=== PATIENT | female | born 1990 | race Caucasian/White ===

== ENCOUNTER 2025-10-25 07:48 | Outpatient (AMB) | payer OTHER, SELFPAY ==
--- OUTSIDE RECORDS SUMMARY | 2025-10-25 07:53 | XMS_ITS | Clinical Summary ---
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 20 tablet 10/18/20 25 Discontinu ed(Therapy completed) Active Problems Problem Noted Date Diagnosed Date Prediabetes 04/11/2025 Resolved Problems Problem Noted Date Diagnosed Date Resolved Date Patient denies medical problems 04/06/2025 04/11/2025 Encounters Date Type Department Care Team Description 10/18/2025 8:00 AM EST Office Visit Adult Medicine [address] [phone] Bernadette Bell PA Elevated blood pressure reading without diagnosis of hypertension (Primary Dx); Nonintractable headache, unspecified chronicity pattern, unspecified headache type 10/17/2025 Telephone Adult Medicine [address] [phone] Oralia Butler MD from Last 3 Months Immunizations Immunization Administration Dates Next Due Tdap Tetanus diptheria acell ular pertussis (Boostrix; Adacel) 7yo and older 05/15/2024 Surgical History Surgery Date Site/Laterality Comments SECTION, LOW TRANSVERSE 12/31/2019 - 01/28/202009/2013 ANKLE FRACTURE SURGERY 11/30/2021 - 12/30/2021 Left ORIF Family History Medical History Relation Name Comments No Known Problems Brother No Known Problems Father Hypertension Mother No Known Problems Sister 1 No Known Problems Sister 2 No Known Problems Sister 3 Relation Name Status Comments Brother Alive Father Alive Maternal Grandfather Maternal Grandmother Mother Alive Paternal Grandfather Paternal Grandmother Alive Sister 1 Alive Sister 2 Alive Sister 3 Alive Social History Tobacco Use Types Packs/Day Years Used Date Smoking Tobacco: Never Passive Smoke Exposure: Never Smokeless Tobacco: Never Tobacco Cessation:Counseling Given: Not Answered Alcohol Use Standard Drinks/Week Comments Not Currently 0 (1 standard drink = 0.6 oz pur e alcohol) Housing Instability Answer Date Recorde d Are you worried that in the next 2 months you may not have stable housing? No 04/06/2025 Food Access & Nutrition Answer Date Rec orded Do you have access to a vari ety of food including fruits and vegetables? Yes 04/06/2025 Access to Healthcare Answer Date Record ed Within the last 3 months, ho w many times did you visit the emergency department for your medical care? 0 04/06/2025 Health Literacy Answer Date Recorded How often do you need to hav e someone help you when you read instructions, pamphlets, or other written material from your doctor or pharmacy? Never 04/06/2025 Caregiver: How often do you need to have someone help you when you read instructions, pamphlets, or other written material from your doctor or pharmacy? Not on file 04/06/2025 Financial Risk Answer Date Recorded How hard is it for you to pa y for the very basics like food, housing, medical care, and air conditioning / heating? Not very hard 04/06/2025 Transportation Answer Date Recorded Has the lack of transportati on kept you from meetings, work, or from getting things needed for daily living? No Has the lack of transportati on kept you from medical appointments or from getting medications? No 04/06/2025 Social Isolation Answer Date Recorded How often do you feel lonely or isolated from th ose around you? Never 04/06/2025 Food Risk Answer Date Recorded Within the past 12 months we worried whether our food would run out before we got money to buy more. Never true 04/06/2025 Within the past 12 months th e food we bought just didn't last and we didn't have money to get more. Never true 04/06/2025 Dependent Care Answer Date Recorded Do you need help finding or paying for care for your loved ones. For example, child caregiver or elderly care for an older adult? No 04/06/2025 Education Answer Date Recorded Do you think completing more education or training, like finishing a GED, going to college, or learning a trade, would be helpful for you? No 04/06/2025 Employment and Income Answer Date Recor ded During the last four weeks, have you been actively looking for work? No 04/06/2025 Living Situation Answer Date Recorded What is your living situation? Unrecognized valu e 04/06/2025 Comments Unknown Sex and Gender Information Value Date Recorded Sex Assigned at Not on file Legal Sex Female 12:25 PM EST Gender Identity Not on file Sexual Orientation Not on file Obstetrics History Last Filed Vital Signs Vital Sign Reading Time Taken Comments Blood Pressure 128/84 10/18/2025 7:57 AM EST machine 122/76 Pulse 94 10/18/2025 7:57 AM EST Temperature 36.1 C (97 F) 10/18/2025 7:57 AM EST Respiratory Rate 12 10/18/2025 7:57 AM EST Oxygen Saturation 99% 06/20/2025 2:5 1 PM EDT Inhaled Oxygen Concentration - - Weight 97.8 kg (215 lb 8 oz) 10/18/2025 7:57 AM EST Height 152.4 cm (5') 10/18/2025 7:57 AM EST Body Mass Index 42.09 10/18/2025 7:57 AM EST Plan of Treatment Health Maintenance Due Date Last Done Comments Hepatitis B Vaccines (1 of 3 - 19+ 3-dose series) 2008 HPV Vaccines (1 - 3-dose SCD M series) 2016 HIV Screening 10/28/2022 Hepatitis C Screening 10/28/2022 Influenza Vaccine (#1) 2025 Cervical Cancer Screening: P ap Smear 04/06/2026 Postponed from 03/24 (Supply/Drug Shortage) Social Influencers of Health Screening 04/06/2026 04/06/2025 Cholesterol Screening (Lipid Panel) 04/06/2030 04/06/2025 DTaP,Tdap,and Td Vaccines (2 - Td or Tdap) 05/15/2034 05/15/2024 RSV Immunization Adult Patie nts (1 - 1-dose 75+ series) 2064 Depression Screening Completed 10/17/2025 COVID-19 Vaccine Discontinued HIB Vaccines Aged Out No longer eligi ble based on patient's age to complete this topic Hepatitis A Vaccines Aged Out No long er eligible based on patient's age to complete this topic IPV Vaccines Aged Out No longer eligi ble based on patient's age to complete this topic MMR Vaccines Aged Out No longer eligi ble based on patient's age to complete this topic Meningococcal ACWY Vaccine Aged Out N o longer eligible based on patient's age to complete this topic Meningococcal B Vaccine Aged Out No l onger eligible based on patient's age to complete this topic Pneumococcal Vaccine: Pediat rics (0 to 5 Years) and At-Risk Patients (6 to 49 Years) Aged Out No longer eligi ble based on patient's age to complete this topic RSV Immunization Patients Un ashleigh 20 months Aged Out No longer eligible b ased on patient's age to complete this topic Varicella Vaccines Aged Out No longer eligible based on patient's age to complete this topic Procedures Procedure Name Priority Date/Time Associated Diagnosis Comments LIPID PANEL WITH REFLEX TO DIRECT LDL Routine 04/06/2025 4:24 PM EDT Routine physical examination from Last 3 Months or Most Recently Relevant to Health Maintenance Results * (ABNORMAL) Lipid panel with reflex to direct LDL (04/06/2025 4:24 PM EDT) Cholesterol 195 0 - 200 mg/dL LAB CHEMISTRY METHOD 04/06/2025 7:20 PM EDT [facility] Triglycerides 162(H) 0 - 150 mg/dL LAB CHEMISTRY METHOD 04/06/2025 7:20 PM EDT [facility] HDL 68 >=40 mg/dL LAB CHEMISTRY METHOD 04/06/2025 7:20 PM EDT [facility] LDL Calculated 95 0 - 100 mg/dL LAB CHEMISTRY METHOD 04/06/2025 7:20 PM EDT [facility] VLDL Cholesterol Mehdi 32.4 mg/dL LAB CHEMISTRY METHOD 04/06/2025 7:20 PM EDT [facility] Non HDL Chol. (LDL+VLDL) 127 <145 mg/dL LAB CHEMISTRY METHOD 04/06/2025 7:20 PM EDT [facility] Chol/HDL Ratio 2.9 0.0 - 4.4 LAB CHEMISTRY METHOD 04/06/2025 7:20 PM EDT [facility] Blood Venous blood specimen / Unknown Venipuncture / Unknown 04/06/2025 4:24 PM EDT 04/06/2025 4:24 PM EDT us Bernadette COY LAB BLOOD ORDERABLES Final Res ult [facility] [address] [place] [address], from Last 3 Months or Most Recently Relevant to Health Maintenance Insurance [facility] [employer] [facility] Care Teams Rim Fire Priming Operator Relationship Specialty Start Date End Date Oralia Butler MD [address] [place], [place] PCP - General Internal Medicine 8/22/24
--- NOTE | 2025-10-25 09:07 | MHC.OFFVISWM ---
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: Details: Start time: 9.00am, End time: 9.40am ?I spent 35 minutes speaking with the patient on the phone plus an additional 5 minutes reviewing and updating records for a total of 40 minutes HPI Comments Details: Previous weight loss efforts: Herbalife, self diets and exercise Wakes up: 6am, Sleeps: 9pm Breakfast: skips Lunch: 12pm (rice, chicken) Dinner: 7pm (rice and chicken) Snacks: 4pm (chocolate), 8pm (chocolate, sweets) Exercise: Stationary bike (tracks calories) Beverages: Coffee: (1 cup/d with cream and sugar), Tea: rarely, Soda: regular Coke: daily, Juice: none, ETOH: none PFSH Medical History (Updated 10/25/25 @ 09:09 by Keith Hadley MD) Morbid obesity Delivery with history of Surgical History (Updated 10/19/25 @ 08:47 by Kanchan Morelos CMA) History of ankle surgery Family History (Updated 10/19/25 @ 08:47 by Kanchan Morelos CMA) Mother No problems noted. Father No problems noted. Social History (Updated 10/19/25 @ 08:47 by Kanchan Morelos CMA) Alcohol intake: never Patient Tobacco Use Status: Never used Tobacco Telehealth Telehealth Telehealth Platform: Telephone Location of provider rendering services: practice address Location of patient: address on file Patient Identification confirmed using: Name, : Yes Telehealth method: voice only Patient verbally consented to treatment: Yes Patient verbally consented to billing insurance company: Yes Patient informed of any privacy concerns related to visit: Yes Minutes spent on Phone/Video with Pt.: 40 Assessment & Plan Assessment & Plan (1) Morbid obesity: Code(s): E66.01 - Morbid (severe) obesity due to excess calories Category: Medical Plan: 1.? Plan for lap sleeve gastrectomy. If diaphragmatic or ventral hernias are present at time of surgery, these will be repaired laparoscopically as well. I emphasized the importance of close follow-up, adherence to instructions and good communication. The surgery does not replace the need to change your lifestlyle which is the cause of the obesity problem. The surgery provides the motivation to try again to change your lifestyle, it reduces the appetite and make the transition to a better lifestyle easier and doubles the amount of weight you would lose compared to doing the lifestyle change without the surgery. You will need to be on a liquid diet with protein shakes for 2 weeks before surgery to maximize weight loss and boost your nutritional status to recover better from surgery and also for the first two weeks after surgery to let the stomach heal before we introduce other foods. After the first 2 weeks we will introduce protein bars and soft foods like scrambled eggs, cottage cheese and yogurt and after the 6th week will introduce meat, fish and cooked vegetables in small amounts. Over time you should be able to eat everything in small amounts. Side effects like nausea, vomiting, heartburn or abdominal pain are not common in the practice unless you are not following in the practice. This operation requires lifetime commitment to following in our practice and communication with me. You will much less weight and experience side effects if you don?t communicate or not following in the practice. Complications are rare and in our practice is about 1/10 of the national average. However, you can develop bleeding that may require transfusion (hasn?t happened for year in the practice), you may from complications (we did not have any deaths in the practice) and infections. Infections are usually a result of breakdown in communication or not understanding or following directions correctly. They are difficult to treat, they can happen during the first 6 weeks, they may require to be in the hospital for weeks or even months, not being able to eat by mouth and you may have drains and surgeries to try and correct the issue. Other risks and complications include possible conversion to an open procedure, leaks, small bowel obstruction, blood clots, cardiac, or pulmonary complications, as halfway complications such as ulcers, insufficient weight loss and vitamin deficiencies. 2. Nutritional counseling. Start with one CELEBRATE REBUILD protein (buy online with the link I gave you) shake (ONE scoop in 8oz low fat unsweetened almond milk) at 7am-9am, 1 protein bar (CELEBRATE protein bars, buy at [facility] [employer] shop, buy online with the link I gave you) at 10am-12pm, another CELEBRATE REBUILD protein shake (ONE scoop in 8oz low fat unsweetened almond milk) at 1pm-3pm, another Celebrate protein bar at 4pm-6pm, dinner at 7pm (8 forks of protein and 8 forks of salad/vegetables). So you do 2 protein shakes, 2 protein bars and one meal per day. Meal to include lean meat (beef, fish, pork, turkey, chicken), or [place] yogurt, or egg whites, or beans with a salad with olive oil and fruits (berries, pears, apples, kiwi). Avoid salt, breads, potatoes, rice, pasta, desserts. 3. Each shake would be drunk slowly, like coffee in a period of 2 hours. 4. Cut each bar in 4 pieces and eat each piece in 30min ?to make each bar last 2 hours. 5. I emphasized the importance of measuring accurately the food portion and measure it when serving the food in plate 6. The meal portions include 8 full-size forks of meat and 8 full-size forks of salad. You always eat the meat portion but you can replace up to 4 forks for salad/vegetables with rice, potatoes or pasta, or a fruit ?if you like. The less you do it the better weight loss will be. 7. One full-size fork is what it can be scooped on the fork without falling aside and not what can be bit with the fork. Use regular forks like those you find in a typical restaurant. 8.? Please buy the body composition scale we discussed and send me weight measurements as soon as possible and then once a week. Always include your diet and exercise plan. 9. Start stationary bike at a resistance level of 4.0 Increase level by 1.0 every 3 min to a max level of 10.0. Stay at this level for 3 min and then return to level 4.0 and repeat same steps until 300 calories are burned. Goal is to burn 2000 calories per week on exercise 10.?It is important of avoiding and for at least 18 months postoperatively and has been discussed at the infosession. 11. Goal is to lose at least 1.5-2lbs per week 12. Goal to lose 10% of your weight before surgery, which is about 21lbs. Ultimate weight goal: 193lbs before surgery 13. Please follow the diet plan exactly without any change. If you don't like something about the plan or you feel hungry you need to communicate with me so I can help you revise the plan. You should not change the plan yourself 14. To be scheduled for EGD to assess the stomach's anatomy. The possibility of biopsies was discussed. Patient needs to avoid use of NSAIDs and aspirin for 1 week prior to EGD. You must be on liquids only the day before your endoscopy. Risks of perforation and bleeding was discussed with the patient. This will be an outpatient procedure with IV sedation. Orders: Orders Insulin Today E66.01 - Morbid (severe) obesity due to excess calories H Pylori Breath Test Today E66.01 - Morbid (severe) obesity due to excess calories Complete Blood Count Auto Diff Today E66.01 - Morbid (severe) obesity due to excess calories Vitamin B12 and Folate Today E66.01 - Morbid (severe) obesity due to excess calories Zinc Today E66.01 - Morbid (severe) obesity due to excess calories C Reactive Protein Today E66.01 - Morbid (severe) obesity due to excess calories TSH reflex Free T4 Today E66.01 - Morbid (severe) obesity due to excess calories Vitamin D 25-OH Total Today E66.01 - Morbid (severe) obesity due to excess calories FL upper GI w air Today E66.01 - Morbid (severe) obesity due to excess calories Hemoglobin A1c Today E66.01 - Morbid (severe) obesity due to excess calories Lipid Panel Today E66.01 - Morbid (severe) obesity due to excess calories IRON PROFILE Today E66.01 - Morbid (severe) obesity due to excess calories Comprehensive Met. Panel Today E66.01 - Morbid (severe) obesity due to excess calories Vitamin B1 Today E66.01 - Morbid (severe) obesity due to excess calories Vitamin A Today E66.01 - Morbid (severe) obesity due to excess calories Ferritin Today E66.01 - Morbid (severe) obesity due to excess calories US abdomen comp w elastography Today E66.01 - Morbid (severe) obesity due to excess calories XR chest 2V Today E66.01 - Morbid (severe) obesity due to excess calories ECG 12 lead EKG Today E66.01 - Morbid (severe) obesity due to excess calories Referrals Behavioral Health Referral E66.01 - Morbid (severe) obesity due to excess calories Nutrition/Dietitian Referral E66.01 - Morbid (severe) obesity due to excess calories
[2025-10-25 09:14] VITALS: BMI 41.9
== END 2025-10-25 09:40 | disposition home or self-care (01) ==
LOC: HO.HBS 07:48
PROVIDERS: PCP Internal Medicine; Visit Provider Surgery
DX: E66.01 Morbid (severe) obesity due to excess calories (principal)
CPT/HCPCS: 99203

== ENCOUNTER 2025-11-02 09:10 | Outpatient (REF) | payer OTHER, SELFPAY ==
--- NOTE | ~2025-11-02 | XR_ITS ---
EXAMINATION: XR CHEST CLINICAL INFORMATION: E66.01 - Morbid (severe) obesity due to excess calories COMPARISON: None available. TECHNIQUE: PA and lateral views. FINDINGS: No hyperinflation. No consolidation, pleural effusion or pneumothorax. Cardiomediastinal silhouette size is normal. Osseous structures are intact. Patient's large body habitus/obesity. XR/XR chest 2V IMPRESSION: Normal chest x-ray. Electronically signed by: Guido Cabrera MD 11/02/2025 09:54 AM EST
--- NOTE | 2025-11-02 09:17 | ECG_ITS ---
Test Reason : OBESITY Blood Pressure : */* mmHG Vent. Rate : 90 BPM Atrial Rate : 90 BPM P-R Int : 140 ms QRS Dur : 66 ms QT Int : 382 ms P-R-T Axes : 36 5 22 degrees QTcB Int : 467 ms Normal sinus rhythm with sinus arrhythmia Normal ECG No previous ECGs available Referred By: Keith Hadley Electronically Signed By: DINA UMANZOR
[2025-11-02 09:30] LABS: MANUAL DIFF FLAG NO
[2025-11-02 09:45] LABS: Hematocrit 41.4 % (37.0-47.0); Hemoglobin 13.3 g/dl (12.0-16.0); Imm Gran Abs Auto 0.03 X10*3/uL (0.00-0.03); Imm Gran Pct Auto 0.3 % (0.0-0.4); Lymphocytes Absolute Auto 1.5 X10*3/uL (1.2-4.9); Mean Corpuscular HGB Conc 32.1 g/dl (31.0-35.0); Mean Corpuscular Hemoglobin 27.4 pg (27.0-33.0); Mean Corpuscular Volume 85.4 fL (80.0-98.0); NRBC Abs Auto 0.000 X10*3/uL (0.0-0.012); NRBC Pct Auto 0.0 /100WBC (0.0-0.2); Platelet Count 277 X10*3/uL (160-400); Red Blood Count 4.85 X10*6/uL (4.20-5.50); White Blood Count 9.3 X10*3/uL (4.8-10.8)
--- OUTSIDE RECORDS SUMMARY | 2025-11-02 10:07 | XMS_ITS | Clinical Summary ---
Author Organization [facility] [address] [place] [address] [place] [address] Phone Care Team Providers Care Medical Records Specialist Name Role Phone Oralia Butler MD Primary Care Provider [phone] Allergies No known active allergies Medications methocarbamoL [...] 8:00 AM EST Office Visit Adult Medicine [address] [phone] Bernadette Bell PA Elevated blood pressure reading without diagnosis of hypertension (Primary Dx); Nonintractable headache, unspecified chronicity pattern, unspecified headache type 10/17/2025 Telephone Adult Medicine [address] [phone] Oralia Butler MD from Last 3 Months [...] care for your loved ones. For example, director child development center or elderly care for an older adult? [...] LAB CHEMISTRY METHOD 04/06/2025 7:20 PM EDT [facility] Triglycerides 162(H) 0 - 150 mg/dL LAB CHEMISTRY METHOD 04/06/2025 7:20 PM EDT [facility] HDL 68 >=40 mg/dL LAB CHEMISTRY METHOD 04/06/2025 7:20 PM EDT [facility] LDL Calculated 95 0 - 100 mg/dL LAB CHEMISTRY METHOD 04/06/2025 7:20 PM EDT [facility] VLDL Cholesterol Mehdi 32.4 mg/dL LAB CHEMISTRY METHOD 04/06/2025 7:20 PM EDT [facility] Non HDL Chol. (LDL+VLDL) 127 <145 mg/dL LAB CHEMISTRY METHOD 04/06/2025 7:20 PM EDT [facility] Chol/HDL Ratio 2.9 0.0 - 4.4 LAB CHEMISTRY METHOD 04/06/2025 7:20 PM EDT [facility] Blood Venous blood specimen / Unknown Venipuncture / Unknown 04/06/2025 4:24 PM EDT 04/06/2025 4:24 PM EDT us Bernadette COY LAB BLOOD ORDERABLES Final Res ult [facility] [address] [place] [address], from Last 3 Months or Most Recently Relevant to Health Maintenance Insurance [facility] [employer] Care Teams Medical Records Specialist Relationship Specialty Start Date End Date Oralia Butler MD [address] [place], [place] PCP - General Internal Medicine 8/22/24
[2025-11-02 10:28] LABS: Alanine Aminotransferase 46 U/L (0-31); Albumin Level 4.7 g/dL (3.5-5.0); Alkaline Phosphatase 75 U/L (39-117); Anion Gap 14 (12-20); Aspartate Amino Transferase 44 U/L (5-31); Blood Urea Nitrogen 10 mg/dL (9-16); Calcium 9.2 mg/dL (8.4-10.2); Carbon Dioxide 24 mmol/L (22-29); Chloride 108 mmol/L (96-108); Cholesterol 185 mg/dL (<200); Estimated Glomerular Filt Rate > 60; HDL Cholesterol 55 mg/dL (>40); Iron 70 mcg/dL (30-160); Percent Iron Saturation 24 % (15-50); Potassium 4.0 mmol/L (3.3-5.1); Sodium 142 mmol/L (135-145); Total Iron Binding Capacity 286 mcg/dL (228-428); Total Protein 7.8 g/dL (6.5-8.0); Triglycerides 85 mg/dL (<150); Unsaturated Iron Binding 216 ug/dL
[2025-11-02 10:44] LABS: Folate 14.0 ng/mL (> or = 4.0); Vitamin B12 604 pg/mL (200-900)
[2025-11-02 10:45] LABS: Ferritin 103 ng/mL (10-122)
== END 2025-11-02 09:11 | disposition home or self-care (01) ==
LOC: HO.XRAY 09:10
PROVIDERS: PCP Internal Medicine; Visit Provider Surgery
DX: E66.01 Morbid (severe) obesity due to excess calories (principal)
CPT/HCPCS: 36415; 71046; 80053; 80061; 82306; 82607; 82728; 82746; 83036; 83525; 83540; 84425; 84443; 84590; 84630; 85025; 86140; 93005

== ENCOUNTER → 2025-11-02 09:17 | Outpatient (BNV) | payer OTHER, SELFPAY | PROVIDERS: PCP Internal Medicine; Visit Provider Internal Medicine | DX: E66.01 Morbid (severe) obesity due to excess calories (principal) | CPT/HCPCS: 93010 ==

== ENCOUNTER → 2025-11-02 09:40 | Outpatient (BNV) | payer OTHER, SELFPAY | PROVIDERS: PCP Internal Medicine; Visit Provider Radiology Diagnostic Radiology | DX: E66.01 Morbid (severe) obesity due to excess calories (principal) | CPT/HCPCS: 71046 ==

== ENCOUNTER 2025-11-28 15:08 | Outpatient (AMB) | payer OTHER, SELFPAY ==
--- NOTE | 2025-11-28 15:00 | MHC.WMTHER ---
Intake Intake Visit Reasons: VIDEO BH Intake Allergies No Known Allergies Allergy (Verified 10/25/25 09:08) [facility] Medical History (Updated 11/06/25 @ 17:25 by Keith Hadley MD) Vitamin D deficiency Morbid obesity Delivery with history of Surgical History (Updated 10/19/25 @ 08:47 by Kanchan Morelos CMA) History of ankle surgery Family History (Updated 10/19/25 @ 08:47 by Kanchan Morelos CMA) Mother No problems noted. Father No problems noted. Social History (Updated 10/19/25 @ 08:47 by Kanchan Morelos CMA) Alcohol intake: never Patient Tobacco Use Status: Never used Tobacco Behavioral Health Assessment Weight Management Therapy Therapy Notes Details The patient is a?35 year old female?presenting for a behavioral health assessment as part of the surgical weight loss program. She was initially referred by her primary care provider following her most recent physical examination. The patient reports increased motivation to address her health after being informed she is?pre-diabetic. Presenting Concerns Referral Source WMP-Provider Reason for referral Completion of behavioral health assessment as part of process for weight-loss surgery. Precipitating Event Obesity Living Situation Current Living Situation Own At risk of losing current housing? No Satisfied with current living situation? Yes Comments PT lives with her boyfriend and 2 kids. Food/Weight/Diet Expectations of change PT started the program at 214Lbs and reported her recent weight was 199Lbs as of yesterday. The initial goal is to lose 10% of your weight before surgery, which is about 21lbs. Ultimate weight goal: 193lbs before surgery Patient doesn't have a weight in mind as a target weight-goal, she wants to feel comfortable on her body and imporve her health. PT is implementing the following: Current meal plan: 2 protein shakes, 2 protein bars and one meal per day. Exercise plan: treadmill 5 x week. scale: yes Communication w/ provider: Mondays. History/Relationship with food PT reports she used to eat a lot of sweets. dinner would be large plates and would repeat. Example of meals before starting the program: Breakfast: skips - would have a large coffee from [employer]. On weekends would be eggs, pancakes or a sandwich Lunch: 12pm (mostly leftovers form dinner) Dinner: 7pm (rice or pasta w/ chicken/pork, and beans on the side. Salad sometimes too) - takeout 1-2 week (Bel[place]ian, pizza, [employer]) Snacks: 4pm (chocolate), 8pm (chocolate, sweets) Beverages: Coffee: (1 cup/d with cream and sugar), Tea: rarely, Soda: regular Coke: daily, Juice: none, ETOH: none History/Relationship with weight PT denies being overweight in childhood. Recalls being 130Lbs before having her first child about 13 years ago. In the last 10 years, the patient's Lowest weight was 150Lbs and highest 215Lbs 5 years ago she broke a leg, she noticed major weight gain during this time. History/Relationship with dieting Herbalife, self-diet, teas, OTC pills. Binge Eating Do you frequently eat large amounts of food in short periods of time, not feeling physically hungry? Yes Do you feel out of control when you eat a large amount of food in a short period of time? No Do you eat large amounts of food rapidly and typically alone? No Night Eating Do you wake up at least once during the night to eat? No If you wake up in the night, do you find that it is necessary to eat something in order to fall back asleep? No Do you have little or no appetite in the morning and feel very hungry in the evening, often overeating between dinner and when you go to bed? Yes Social History Family history and relationship PT is in a relationship; they have been together for about 7 years and have one child together. She has 2 children and 12 and a 5 year old. Parents are alive, she has 5 siblings. PT reports good and healthy family relationships. 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 Full custody of oldest. Developmental history and status None reported. Social support Boyfriend, aunt, mom. Community support None. Hoahaoism/Spirituality Alevism. Cultural/Ethnic information . Legal Involvement and History Current or historical involvement with the legal system? None reported. Education Highest grade completed HS. Preferred learning style Auditory and Learn by doing Currently enrolled in educational program? No Interested in further educational program? 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 No Financial Situation Describe current financial situation Comfortable Financial assistance? None Service Service? No Mental Health and Addiction Treatment Current/Past substance abuse? No Comments Alcohol: 0-1 x month. 1-2 drinks. Cigarettes/Tobacco: None. Cannabis/Edibles: none. Current/Past addictive behavior concerns? No Psychiatric history The patient reports no current or prior involvement in mental health treatment. She denies any history of psychiatric hospitalization, crisis intervention, or inpatient mental health care. She also denies any current or past suicidal ideation, suicide attempts, self-harm behaviors, or thoughts of harm to others. Medical and Physical Health Summary Additional Medical History not covered in history pre-diabetes. Sexual History concerns None reported. Physical exam in the last year? Yes Pain Screening Current pain? No Pain in the last few months? No Medications Is the patient compliant with medications? Yes Does the patient have Valadez Guardian in place? Not applicable Does the patient use complimentary health approaches? No Trauma/Abuse History History of trauma? No Questionnaires PHQ-9 Over the last 2 weeks, how often have you been bothered by any of the following problems? 1. Little interest or pleasure in doing things: not at all 2. Feeling down, depressed, or hopeless: not at all 3. Trouble falling or staying asleep, or sleeping too much: several days 4. Feeling tired or having little energy: several days 5. Poor appetite or overeating: not at all 6. Feeling bad about yourself - or that you are a failure or have let yourself or your family down: not at all 7. Trouble concentrating on things, such as reading the newspaper or watching television: not at all 8. Moving or speaking so slowly that other people could have noticed. Or the opposite - being so fidgety or restless that you have been moving around a lot more than usual: not at all 9. Thoughts that you would be better off or of hurting yourself in some way: not at all Total score: 2 Depression Screening Interpretation: Negative (Initial score: 11 - ) Depression Screening Done: Yes 25581 - PHQ-9 Billing: Yes Source: Developed by Drs. Chandrakant Mack, Donita Burns, Mainor Peoples and colleagues, with an educational jono from [employer]. Binge Eating Scale Group 1 A. I don't feel self-conscious about my wt. or body size when I'm with others. B. I feel concerned about how I look to others, but it normally does not make me fell disappointed with myself C. I do get self-conscious about my appearance and wt. which makes me feel disappointed in myself. D. I feel very self-conscious about my wt. and frequently I feel intense shame and disgust for myself. I try to avoid social contacts because of my self-consciousness. Response Group 1: D Group 2 A. I don't have any difficulty eating slowly in the proper manner. B. Although I seem to gobble down foods, I don't end up feeling stuffed because of eating to much. C. At times, I tend to eat quickly and then, I feel uncomfortably full afterwards. D. I have the habit of bolting down my food, without really chewing it. When this happens I usually feel uncomfortably stuffed because I've eaten to much. Response Group 2: C Group 3 A. I feel capable to control my eating urges when I want to. B. I feel like I have failed to control my eating more than the average person. C. I feel utterly helpless when it comes to feeling in control of my eating urges. D. Because I feel so helpless about controlling my eating I have become very desperate about trying to get control. Response Group 3: A Group 4 A. I don't have the habit of eating when I'm bored. B. I sometimes eat when I'm bored, but often I'm able to get busy and get my mind off food. C. I have a regular habit of eating when I'm bored, but occasionally, I can use some other activity to get my mind off eating. D. I have a strong habit of eating when I'm bored. Nothing seems to help me breath the habit. Response Group 4: C Group 5 A. I'm usually physically hungry when I eat something. B. Occasionally, I eat something on impulse even though I really am not hungry. C. I have the regular habit of eating foods, that I might not really enjoy, to satisfy a hungry feeling even though physically, I don't need the food. D. Although I'm not physically hungry, I get a hungry feeling in my mouth that only seems to be satisfied when I eat a food, like sandwich, that fills my mouth. Sometimes, when I eat the food to satisfy my mouth hunger, I then spit the food out so I won't gain weight. Response Group 5: B Group 6 A. I don't feel any guilt or self-hate after I overeat. B. After I overeat, occasionally I feel guilt or self-hate. C. Almost all the time I experience strong guilt or self-hate after I overeat. Response Group 6: B Group 7 A. I don't lose total control of my eating when dieting even after periods when I overeat. B. Sometimes when I eat a forbidden food on a diet, I feel like I blew it and eat even more. C. Frequently, I have the habit of saying to myself, I've blown it now, why not go all the way, when I overeat on a diet. When that happens I eat more. D. I have a regular habit of starting a strict diets for myself but I break the diets by going on an eating binge. My life seems to be either a feast or famine. Response Group 7: A Group 8 A. I rarely eat so much food that I feel uncomfortably stuffed afterwards. B. Usually about once a month, I each such a quantity of food, I end up feeling very stuffed. C. I have regular periods during the month when I eat large amounts of food, either at mealtime or at snacks. D. I eat so much food that I regularly feel quite uncomfortable after eating and sometimes a bit nauseous. Response Group 8: A Group 9 A. My level of calorie intake does not go up very high or go down very low on a regular basis. B. Sometimes after I overeat, I will try to reduce my caloric intake to almost nothing to compensate for the excess calories I've eaten. C. I have a regular habit of overeating during the night. It seems that my routine is not to be hungry in the morning but overeat in the evening. D. In my adult years, I have had week-long periods where I practically starve myself. This follows periods when I overeat. It seems I live a life of either feast or famine. Response Group 9: A Group 10 A. I usually am able to stop eating when I want to. I know when enough is enough. B. Every so often, I experience a compulsion to eat which I can't seem to control. C. Frequently, I experience strong urges to eat which I seem unable to control, but at other times I can control my eating urges. D. I feel incapable of controlling urges to eat. I have a fear of not being able to stop eating voluntarily. Response Group 10: B Group 11 A. I don't have any problem stopping eating when I feel full. B. I usually can stop eating when I feel full but occasionally overeat leaving me feeling uncomfortably stuffed. C. I have a problem stopping eating once I start and usually I feel uncomfortably stuffed after I eat a meal. D. Because I have a problem not being able to stop eating when I want, I sometimes have to induce vomiting to relieve my stuffed feeling. Response Group 11: B Group 12 A. I seem to eat just as much when I'm with others, Family social gatherings as when I'm by myself. B. Sometimes, when I'm with other persons, I don't eat as much as I want to eat because I'm self-conscious about my eating. C. Frequently, I eat only a small amount of food when others are present, because I'm very embarrassed about my eating. D. I feel so ashamed about overeating that I pick times to overeat when I know no one will see me. I feel like a closet eater. Response Group 12: B Group 13 A. I eat three meals a day with only an occasional between meal snack. B. I eat 3 meals a day, but I also normally snack between meals. C. When I am snacking heavily, I get in the habit of skipping regular meals. D. There are regular periods when I seem to be continually eating, with no planned meals. Response Group 13: D Group 14 A. I don't think much about trying to control unwanted eating urges. B. At least some of the time, I feel my thoughts are pre-occupied with trying to control my eating urges. C. I feel that frequently I spend much time thinking about how much I ate or about trying not to eat anymore. D. It seems to me that most of my waking hours are pre-occupied by thoughts about eating or not eating. I feel like I'm constantly struggling not to eat. Response Group 14: C Group 15 A. I don't think about food a great deal. B. I have strong craving for food but they last only for brief periods of time. C. I have days when I can't seem to think about anything else but food. D. Most of my days seem to be pre-occupied with thoughts about food. I feel like I live to eat. Response Group 15: A Group 16 A. I usually know whether or not I'm physically hungry. I take the right portion of food to satisfy me. B. Occasionally, I feel uncertain about knowing whether or not I'm physically hungry. A these times it's hard to know how much food I should take to satisfy me. C. Even though I might know how many calories I should eat, I don't have any idea what is a normal amount of food for me. Response Group 16: B Binge Eating Score: 18 Score less than 17 Minimal Risk Score between 18-26 Moderate Risk Score between 27-46 High Risk Assessment & Plan Assessment & Plan (1) Adjustment disorder: Code(s): F43.20 - Adjustment disorder, unspecified Qualifiers: Adjustment disorder type: unspecified type Qualified Code(s): F43.20 - Adjustment disorder, unspecified (2) Pre-bariatric surgery psychological evaluation: Code(s): Z71.89 - Other specified counseling Plan Following a comprehensive behavioral health assessment?including review of the Binge Eating Scale, PHQ-9, mental status evaluation, and patient self-report?there are currently no behavioral health contraindications to proceeding with bariatric surgery. The patient demonstrates appropriate insight, motivation, and psychological readiness for the procedure. No active psychiatric symptoms or maladaptive eating behaviors were identified that would impede surgical outcomes at this time. The patient is cleared from a behavioral health perspective to proceed with bariatric surgery and documentation can be submitted for insurance approval as indicated. PT will return for a follow-up behavioral health visit 1?4 weeks postoperatively to monitor psychological adjustment, reinforce coping strategies, and screen for any emerging concerns such as mood changes, adjustment difficulties, or disordered eating patterns. Additional behavioral health support will be provided as needed based on postoperative assessment. Next kathy: 1-4 weeks PO. Telehealth Telehealth Telehealth Platform: [employer] Location of provider rendering services: other (Home office. [place], [place]) Location of patient: address on file Patient Identification confirmed using: Name, : Yes Telehealth method: video Patient verbally consented to treatment: Yes Patient verbally consented to billing insurance company: Yes Patient informed of any privacy concerns related to visit: Yes Minutes spent on Phone/Video with Pt.: 50 [place] [address] Tele Psy Diag Eval Patient Type New Diagnoses Adjustment disorder, unspecified type F43.20 Adjustment disorder type: unspecified type Pre-bariatric surgery psychological evaluation Z71.89 Additional Codes PHQ-9 - 25055 - PHQ-9 Billing: Yes ([id number]) Time Spent (min) 50
--- OUTSIDE RECORDS SUMMARY | 2025-11-28 18:37 | XMS_ITS | Clinical Summary ---
Author Organization [facility] [address] [place] [address] Address [address] [place], [place] Phone Care Team Providers Care Rug Receiving Clerk Name Role Phone Oralia Butler MD Primary Care Provider [phone] Allergies No known active allergies Medications No known medications Active Problems Problem Noted Date Diagnosed Date Prediabetes 04/11/2025 Resolved Problems Problem Noted Date Diagnosed Date Resolved Date Patient denies medical problems 04/06/2025 04/11/2025 Encounters Date Type Department Care Team Description 10/18/2025 8:00 AM EST Office Visit Adult Medicine [address] [phone] Bernadette Bell PA Elevated blood pressure reading without diagnosis of hypertension (Primary Dx); Nonintractable headache, unspecified chronicity pattern, unspecified headache type 10/17/2025 Telephone Adult Medicine [address] [phone] Oralia Butler MD from Last 3 Months [...] care for your loved ones. For example, children's lunchroom supervisor or elderly care for an older adult? [...] on file Sexual Orientation Not on file Last Filed Vital Signs Vital Sign Reading [...] Procedure Name Priority Date/Time Associated Diagnosis Comments EXTERNAL CLINICAL LAB 11/02/2025 EXTERNAL CLINICAL LAB 11/02/2025 EXTERNAL CLINICAL LAB 11/02/2025 EXTERNAL XRAY REPORT 11/02/2025 EXTERNAL XRAY REPORT 11/02/2025 LIPID PANEL WITH REFLEX TO DIRECT LDL Routine 04/06/2025 4:24 PM EDT Routine physical examination from Last 3 Months or Most Recently Relevant to Health Maintenance Results * External Xray Report (11/02/2025) Only the most recent of2 resultswithin the time period is included. Anatomical Region Laterality Modality Radiographic Eveline ging us Provider [facility] XR PROCEDURES Final Result * External clinical lab (11/02/2025) Only the most recent of3 resultswithin the time period is included. us Provider [facility] BLOOD ORDERABLES Fin al Result * (ABNORMAL) Lipid panel with reflex to direct LDL (04/06/2025 4:24 PM EDT) Cholesterol 195 0 - 200 mg/dL LAB CHEMISTRY METHOD 04/06/2025 7:20 PM EDT [facility] Triglycerides 162(H) 0 - 150 mg/dL LAB CHEMISTRY METHOD 04/06/2025 7:20 PM EDT [facility] HDL 68 >=40 mg/dL LAB CHEMISTRY METHOD 04/06/2025 7:20 PM EDT [facility] LDL Calculated 95 0 - 100 mg/dL LAB CHEMISTRY METHOD 04/06/2025 7:20 PM EDT [facility] VLDL Cholesterol Mehdi 32.4 mg/dL LAB CHEMISTRY METHOD 04/06/2025 7:20 PM EDT [facility] Non HDL Chol. (LDL+VLDL) 127 <145 mg/dL LAB CHEMISTRY METHOD 04/06/2025 7:20 PM EDT [facility] Chol/HDL Ratio 2.9 0.0 - 4.4 LAB CHEMISTRY METHOD 04/06/2025 7:20 PM EDT [facility] Blood Venous blood specimen / Unknown Venipuncture / Unknown 04/06/2025 4:24 PM EDT 04/06/2025 4:24 PM EDT Bernadette COY LAB BLOOD ORDERABLES Final Res ult [facility] [address] [place] [address], from Last 3 Months or Most Recently Relevant to Health Maintenance Insurance [facility] [employer] Care Teams Rug Receiving Clerk Relationship Specialty Start Date End Date Oralia Butler MD [address] [place] [id number] PCP - General Internal Medicine 07/21/24
== END 2025-11-28 16:24 | disposition home or self-care (01) ==
LOC: HO.HBST 15:08
PROVIDERS: PCP Internal Medicine; Visit Provider Counselor Mental Health
DX: F43.20 Adjustment disorder, unspecified (principal); Z71.89 Other specified counseling
CPT/HCPCS: 90791